=== PATIENT | female | born 1955 | race Caucasian/White ===

== ENCOUNTER → 2020-06-16 | Outpatient (CLI) | payer MEDICARE ==
[~2020-06-16] MED LIST: ALBU90OI; ALBU90OI6; ASPI81EC; ATOR20; BUDE32NIS; CALCIT950; CHOL10002; DAILY MULTIPLE1 EACH; ESTR1; FAMO40; FLUSAL2505; Flonase 0.05% N16 GM; HYDACE5 PO; KETO5OP; LEVSOD50; LORPSEER24; MULVITMINF; OMEG1CAP30; OMEP20ER; PANT40; PROG100; PROM25 PO; QUET25; QVAR7.3 G1; RXPROM25 PO; TRAZ50; UBID10; VENL75; ZYRTEC10 MG
[2020-06-16 09:35] LABS: Source, Urine Clean Catch
[2020-06-16 13:21] LABS: Appearance, Urine Cloudy (Clear); Bilirubin, Urine Neg (Neg); Blood, Urine 5+ (Neg); Color, Urine Yellow (P-Yellow); Glucose Qualitative, Urine Neg (Neg); Ketones, Urine Neg (Neg); Leukocyte Esterase, Urine 3+ (Neg); Nitrite, Urine Neg (Neg); Protein, Urine 3+ (Neg); Urobilinogen, Urine NORM (Normal)
[2020-06-16 13:30] LABS: Red Blood Cells, Urine TNTC /hpf (0-2); Squamous Epithelial Cells Few /hpf (Few); White Blood Cells, Urine TNTC /hpf (0-5)
[2020-06-16 13:31] LABS: Bacteria Many /hpf; Renal Epithelial Few /hpf (0-Rare); Transitional Epithelial Cells Few /hpf (0-Rare)
== END | disposition home or self-care (01) ==
LOC: LAB 09:34 → LAB SHORT 09:34
PROVIDERS: Internal Medicine
DX: R30.0 Dysuria (principal)
CPT/HCPCS: 81001

== ENCOUNTER 2021-01-10 06:44 | Day surgery (SDC) | payer MEDICARE ==
[~2021-01-10] VITALS: Ht 175.3 cm; Wt 73.6 kg
[~2021-01-10 06:44] MED LIST changes: +ALBU90OI INH; +ATOR20 PO; +CO Q10100 MG PO; +GLUCHON PO; +LEVO-T50 MCG PO; +MULTIPLE VITAM1 EACH PO; +PANT20 PO; +SYMBICORT 160-4.6 GM INH; +TRAZ100 PO; +VITAMIN D325 MC3 PO; +ZADITOR5 M1; +ZYRTEC10 M2 PO
== END 2021-01-10 08:49 | disposition home or self-care (01) ==
LOC: ORSCSDS 06:44
PROVIDERS: Surgery
PROC: 0DB58ZX Excision of Esophagus, Via Natural or Artificial Opening Endoscopic, Diagnostic (ICD-10-PCS; principal; 2021-01-10 08:00)
PROC: 0DBL8ZX Excision of Transverse Colon, Via Natural or Artificial Opening Endoscopic, Diagnostic (ICD-10-PCS; principal; 2021-01-10 08:00)
DX: K22.70 Barrett's esophagus without dysplasia (principal); Z12.11 Encounter for screening for malignant neoplasm of colon; Z86.010 Personal history of colon polyps; Z87.19 Personal history of other diseases of the digestive system; D12.3 Benign neoplasm of transverse colon
CPT/HCPCS: 88305; J0461; J2405; J2704; J7120

== ENCOUNTER 2022-04-15 17:43 | Emergency (ER) | payer MEDICARE ==
[~2022-04-15] VITALS: Ht 175.3 cm; Wt 81.7 kg
== END 2022-04-15 18:54 | disposition home or self-care (01) ==
LOC: ER 17:43
DX: S09.90XA Unspecified injury of head, initial encounter (principal); Z91.048 Other nonmedicinal substance allergy status; Z79.890 Hormone replacement therapy; Z79.899 Other long term (current) drug therapy; W26.9XXA Contact with unspecified sharp object(s), initial encounter
CPT/HCPCS: 99283

== ENCOUNTER 2023-05-14 07:53 | Day surgery (SDC) | payer MEDICARE ==
[~2023-05-14] VITALS: Ht 175.3 cm; Wt 87.8 kg
[2023-05-14] MEDS ORDERED: METF500 (08:50)
[2023-05-14 09:52] VITALS: BP 117/61
== END 2023-05-14 09:41 | disposition home or self-care (01) ==
LOC: ORSCSDS 07:53
PROVIDERS: Surgery
PROC: 0DB58ZX Excision of Esophagus, Via Natural or Artificial Opening Endoscopic, Diagnostic (ICD-10-PCS; principal; 2023-05-14 09:15)
DX: K22.70 Barrett's esophagus without dysplasia (principal); Z87.19 Personal history of other diseases of the digestive system; J45.909 Unspecified asthma, uncomplicated; K21.9 Gastro-esophageal reflux disease without esophagitis; E78.5 Hyperlipidemia, unspecified; Z68.31 Body mass index [BMI] 31.0-31.9, adult; Z87.11 Personal history of peptic ulcer disease; Z79.899 Other long term (current) drug therapy
CPT/HCPCS: 82947; 88305; J2704; J7120

== ENCOUNTER 2023-07-29 02:26 | Emergency (ER) | payer MEDICARE ==
[~2023-07-29] VITALS: Ht 175.3 cm; Wt 88.5 kg
[~2023-07-29 02:26] MED LIST changes: +METF500
[2023-07-29 03:30] LABS: BASOPHILS ABSOLUTE AUTO 0.06 K/mm3 (0.00-0.23); BASOPHILS PERCENT AUTO 1 % (0-2); EOSINOPHILS ABSOLUTE AUTO 0.25 K/mm3 (0.00-0.68); EOSINOPHILS PERCENT AUTO 3 % (0-6); Hematocrit 40.7 % (33.0-51.0); Hemoglobin 13.7 g/dL (11.5-16.0); IMMATURE GRAN ABSOLUTE AUTO 0.02 K/mm3 (0.00-0.10); IMMATURE GRAN PERCENT AUTO 0 % (0-1); LYMPHOCYTES ABSOLUTE AUTO 2.51 K/mm3 (0.84-5.20); LYMPHOCYTES PERCENT AUTO 29 % (21-46); MONOCYTES ABSOLUTE AUTO 0.66 K/mm3 (0.16-1.47); MONOCYTES PERCENT AUTO 8 % (4-13); Mean Corpuscular HGB 31.9 pg (26.0-34.0); Mean Corpuscular HGB Conc 33.7 g/dL (31.5-36.5); Mean Corpuscular Volume 95 fL (80-100); Mean Platelet Volume 9.3 fL (9.1-12.4); NEUTROPHILS ABSOLUTE AUTO 5.16 K/mm3 (1.96-9.15); NEUTROPHILS PERCENT AUTO 60 % (41-73); Platelet Count 324 K/mm3 (150-400); RDW Coefficient Variation 13.5 % (11.7-14.2); RDW Standard Deviation 47.1 fL (35.1-46.3); White Blood Cell Count 8.66 K/mm3 (4.00-11.30)
[2023-07-29 03:56] LABS: Albumin, Blood 3.8 g/dL (3.4-5.0); Albumin/Globulin Ratio 1.1 (0.8-1.8); Bilirubin, Total 0.3 mg/dL (0.1-1.0); Bun/Creatinine Ratio 18.4 (12.0-20.0); Calcium, Blood 8.9 mg/dL (8.5-10.1); Creatinine, Blood 0.87 mg/dL (0.40-1.00); Globulin, Blood 3.6 g/dL (2.2-4.0); Potassium, Blood 3.7 mmol/L (3.5-5.5); Total Protein, Blood 7.4 g/dL (6.4-8.2)
[2023-07-29 04:22] LABS: Magnesium, Blood 2.1 mg/dL (1.6-2.4)
[2023-07-29 04:41] LABS: Source, Urine Clean Catch
[2023-07-29 04:44] LABS: Bilirubin, Urine Neg (Neg); Blood, Urine Neg (Neg); Glucose Qualitative, Urine Neg (Neg); Ketones, Urine Neg (Neg); Leukocyte Esterase, Urine Neg (Neg); Nitrite, Urine Neg (Neg); Protein, Urine Neg (Neg); Urobilinogen, Urine NORM (Normal); pH, Urine 6.5 (5.0-8.0)
[2023-07-29 04:58] LABS: Appearance, Urine Clear (Clear); Color, Urine Yellow (P-Yellow)
[2023-07-29 06:15] VITALS: BP 113/64
== END 2023-07-29 06:28 | disposition home or self-care (01) ==
LOC: ER 02:26
PROVIDERS: Student in an Organized Health Care Education/Training Program
DX: R55 Syncope and collapse (principal); S00.83XA Contusion of other part of head, initial encounter; W19.XXXA Unspecified fall, initial encounter
CPT/HCPCS: 70450; 80053; 81003; 83735; 83880; 84484; 85025; 93005; 93010; 99284-25

== ENCOUNTER → 2024-03-26 | Outpatient (CLI) | payer MEDICARE | LOC: LAB 12:17 → LAB SHORT 12:17 | DX: E03.9 Hypothyroidism, unspecified (principal) | CPT/HCPCS: 84443 ==